=== PATIENT | male | born 1970 | race Caucasian/White ===

== ENCOUNTER 2020-01-27 17:11 | Emergency (ER) | payer SELFPAY ==
[2020-01-27 17:15] VITALS: BP 144/104; PULSE 93; TEMP 36.8; O2SAT 100
--- NOTE | 2020-01-27 17:15 | DI.RAD_ITS ---
EXAM: XR FINGER RT MIDDLE CLINICAL HISTORY: deformity with open wound TECHNIQUE: COMPARISON: No exams were available for comparison FINDINGS: Three views obtained. There is dorsal dislocation of the middle phalanx of middle finger from the pr oximal phalanx. There is no associated fracture. IMPRESSION: RADIATION DOSE DELIVERED: Total DLP
--- NOTE | 2020-01-27 17:52 | DI.VRAD_ITS ---
PROCEDURE INFORMATION: Exam: XR Right Finger(s) Exam date and time: 01/27/2020 5:41 PM Age: 50 years old Clinical indication: Pain; Finger(s); Right; Patient HX: Deformity with open wound, RT 3rd finger TECHNIQUE: Imaging protocol: XR Right fingers. Views: Minimum 2 views. COMPARISON: No relevant prior studies available. FINDINGS: Bones/joints: Complete dorsal dislocation of the proximal right 3rd interphalangeal joint. No fracture. There is no medial or lateral displacement. Soft tissues: Normal. IMPRESSION: Complete dorsal proximal right 3rd interphalangeal joint dislocation without fracture or other displacement. Dictated and Authenticated by: Raleigh Amos MD. Ordering:TERESITA Hicks MD
--- NOTE | 2020-01-27 17:52 | W.ED.GENAD ---
Discharge Plan Disposition Patient Disposition: HOME Condition: Good Discharge Details Chief Complaint: Orthopedic Clinical Impression: Open dislocation Primary Care Provider: None,None ED Provider: Fabiola Mosquera Home Meds and New Rx's Prescriptions: New cephalexin [Keflex] 500 mg capsule 500 mg PO BID Qty: 10 RF: 0 Discharge Instructions Instructions: Laceration (ED), Finger Dislocation (ED) Additional Instructions: Keep wound clean, dry, covered. Please take antibiotics to prevent infection as prescribed. Please take the entire course. Keep the current dressing on until tomorrow, after that time please remove, cover the Band-Aid and apply Foam and metal splint that you are provided. You will need follow-up with orthopedics, please call tomorrow to schedule follow-up appointment. You may return in 1 week for suture removal. Please continue with splint until evaluated by orthopedics. If you develop fever/chills, increased pain, redness, discharge or the new/worsening symptom please seek care urgently once again. Referrals: Adrian Ellison MD [ [facility] STAFF PHYSICIAN] - Discharge Data Discharge Date/Time-TO BE ENTERED AT DEPARTURE: 01/27/20 19:10 Medical Decision Making Patient is a pleasant 50 year old LHD male presenting today with c/c of deformity, laceration and pain to right middle finger. Tripped when walking in flowers and fell on outstretched right hand. He denies other injuries from the incident. Patient is not up-to-date on tetanus, will update this today. Patinet has notable deformity, unclear if htis is dislocation or fracture at the PIP joint. Sensation is intact. He has a 1cm laceration exposing tendon. Capillary refill intact. FINDINGS: Bones/joints: Complete dorsal dislocation of the proximal right 3rd interphalangeal joint. No fracture. There is no medial or lateral displacement. Soft tissues: Normal. IMPRESSION: Complete dorsal proximal right 3rd interphalangeal joint dislocation without fracture or other displacement. Discussed findings with patient. We discussed risks benefits well as procedural steps associated with reduction and closure. He was understanding wished to proceed. Please see procedure note. This was completed using standard sterile technique. Digital block was performed prior to reduction using 1% lidocaine plain. Reduction was quite easy. The wound was then copiously irrigated and cleansed with chlorhexidine and sterile saline. Explored to base in bloodless field no foreign body or debris noted. Tendon does seem to be intact. Patient is able to flex against resistance at the PIP and DIP joint. I did discuss the case with Dr. Ellison. Initially, was not going to close the wound but with addition of range of motion, the wound does seem to open quite a bit I am concerned for potential contamination. #2 simple interrupted stitches were placed. Postreduction films were obtained FINDINGS: Bones/joints: Anatomic alignment is now seen at the PIP joint of the middle (3rd) finger. No displaced fracture. Soft tissues: Soft tissue swelling is seen. IMPRESSION: Anatomic alignment within the PIP joint of the middle (3rd) finger. No fracture. Patient will be placed on Keflex for open dislocation. Patient placed in a foam and metal splint for immobilization. Encouraged follow-up with orthopedics, referral has been sent he will call tomorrow to schedule follow-up appointment. He was given strict return precautions, in particular signs of infection. He will continue with the immobilization to evaluate by orthopedics. All his questions and concerns were addressed and he is in agreement this plan. HPI General Mode of arrival: ambulatory. Date/Time Provider Initiated Documentation: 01/27/20 17:20. Limitations to Documentation: no limitations. Information obtained by: patient and RN notes reviewed. History of Present Illness 50 year old M presents to the emergency department with the chief complaint of right middle finger injuury, described as mild, with intensity rated at 1. Quality is described as aching, and is localized to the right and upper extremity. Patient reports no radiation. Patient started experiencing this minute(s) and it has been constant. Immobilization improves symptom(s), Movement worsens symptoms . Patient notes no other symptoms.. Patient did receive the following treatments prior to arrival, none Related Data Home Medications Medication Instructions Recorded Confirmed cephalexin [Keflex] 500 mg PO BID #10 cap 01/27/20 Previous Rx's Medication Instructions Recorded cephalexin [Keflex] 500 mg PO BID #10 cap 01/27/20 Allergies Allergy/AdvReac Type Severity Reaction Status Date / Time fire ant Allergy Severe anaphylaxis Verified 01/27/20 17:19 General Stated Complaint: Orthopedic ANGELO: 3 Review of Systems Constitutional Constitutional: Reports as per HPI, Denies chills, Denies fever(s), Denies headache(s) and Denies weakness ENT Ears, Nose, Mouth, and Throat: Denies headache(s) Cardiovascular Cardiovascular: Reports as per HPI Respiratory Respiratory: Reports as per HPI and Denies cough Musculoskeletal Musculoskeletal: Reports as per HPI and Denies tingling Integumentary/Breasts Skin/Breast: Reports as per HPI, Denies rash and Reports wounds Neurologic Neurologic: Reports as per HPI, Denies headache(s), Denies tingling, Denies paresthesias and Denies weakness [facility] Social History Smoking/Tobacco Use Status: Current every day Tobacco Type: cigarettes Alcohol Intake: current Alcohol Intake frequency: a few times a month Drug use: Never Substance use type: does not use Adopted: No Caregiver/Support person: No Foster care: No Household members: spouse Housing: house Do you need help understanding health information?: Rarely current occupation: Construction, [employer] Sexually active: Yes Do you think of yourself as: straight/heterosexual Current gender identity: male Do you feel safe at home: Yes Do you feel safe in your relationship?: Yes Exam Const General: cooperative, healthy appearing, comfortable, no acute distress, well developed and well groomed Nutritional Appearance: average body habitus and well nourished Orientation: alert and awake Resp Effort & Inspection: normal respiratory effort, able to speak in complete sentences and no respiratory distress Cardio Rate: regular rate Rhythm: regular rhythm Skin Trauma: laceration (as below) Neuro General: patient alert and patient awake Cognition: normal cognition Speech: speech normal Gait: normal gait Motor: muscle tone normal throughout Sensory Exam: no sensory deficits noted Extrem Right upper extremity: normal capillary refill, wrist Details: normal to inspection and hand Details: abnormal to inspection Details: a deformity Location: of the 3rd digit (deformity to PIP joint, unabl eto ROM, laceration along flexor surfact) and neurosensory exam normal; abnormal to inspection and ROM limited Hand/finger images: 1. irregularly shaped laceration. Tendon is visible over what appears to be a dislocated joint. Sensation is intact distally. No active bleeding. Unable to range finger. Exam of the hand otherwise normal. Psych Appearance: grossly normal and well kempt Mental Status: mental status grossly normal Speech and Movement: speech and movement normal Course Vital Signs Vital signs: Vital Signs Temperature 36.8 C 01/27/20 17:15 Pulse 93 H 01/27/20 17:15 Blood Pressure 144/104 H 01/27/20 17:15 Pulse Oximetry 100 01/27/20 17:15 Temperature 36.8 C 01/27/20 17:15 Temperature Source Temporal Artery Scan 01/27/20 17:15 Pulse 93 H 01/27/20 17:15 Respiratory Effort Non-Labored 01/27/20 17:17 Blood Pressure 144/104 H 01/27/20 17:15 Blood Pressure Position Sitting 01/27/20 17:15 Pulse Oximetry 100 01/27/20 17:15 Oxygen Delivery Method Room Air 01/27/20 17:15 Oxygen Flow Rate 0 01/27/20 17:15 Pain Level 1 01/27/20 17:15 Procedures Laceration Laceration 1: Site: upper extremity Side (If applicable): right Size (cm): 1.5 Description: irregular Depth: simple, single layer Local Anesthetic: Lidocaine 1% Amount of anesthesia used (mL): 5 Pre-repair: wound explored, irrigated extensively and deep structures intact Skin layer closed with: nylon Size (cm): 5-0 Number of sutures: 2 Orthopedic Joint Reduction right index PIP joint: Time Out Performed: Yes Side: right Joint Reduction Location: finger Local Anesthesia: Lidocaine 1% Amount of anesthesic used (mL): 5 Technique used: direct manipulation Post-reduction vascular: intact and no change Post Reduction X-Ray Obtained: Yes Post Reduction X-Ray Results: reduced Splint Applied: Yes Patient Tolerated Procedure: well and no complications
--- NOTE | 2020-01-27 18:30 | DI.RAD_ITS ---
EXAM: XR FINGER RT MIDDLE CLINICAL HISTORY: post reduction TECHNIQUE: COMPARISON: CR,XR XR FINGER RT MIDDLE from 01/27/2020 FINDINGS: Three views were obtained and show reduction of the previously noted PIP dislocation. No fracture id entified. IMPRESSION: RADIATION DOSE DELIVERED: Total DLP
--- NOTE | 2020-01-27 19:11 | DI.VRAD_ITS ---
PROCEDURE INFORMATION: Exam: XR Right Finger(s) Exam date and time: 01/27/2020 6:52 PM Age: 50 years old Clinical indication: Screening exam; Post-reduction; Patient HX: Post reduction TECHNIQUE: Imaging protocol: XR Right fingers. Views: Minimum 2 views. COMPARISON: CR XR FINGER RT MIDDLE 01/27/2020 5:42 PM FINDINGS: Bones/joints: Anatomic alignment is now seen at the PIP joint of the middle (3rd) finger. No displaced fracture. Soft tissues: Soft tissue swelling is seen. IMPRESSION: Anatomic alignment within the PIP joint of the middle (3rd) finger. No fracture. Dictated and Authenticated by: Christine Murry MD. Ordering:TERESITA Hicks MD
== END 2020-01-27 19:10 | disposition home or self-care (01) ==
PROVIDERS: Emergency Provider Physician Assistant
DX: S63.282A Dislocation of proximal interphalangeal joint of right middle finger, initial encounter (principal); S61.212A Laceration without foreign body of right middle finger without damage to nail, initial encounter; W18.09XA Striking against other object with subsequent fall, initial encounter
CPT/HCPCS: 12001; 26770; 90471; 73140

== ENCOUNTER 2020-11-08 09:32 | Emergency (ER) | payer SELFPAY ==
[2020-11-08 09:36] VITALS: BP 166/102; PULSE 89; RESP 16; TEMP 36.4; O2SAT 97
--- NOTE | 2020-11-08 09:41 | W.ED.GENAD ---
Discharge Plan Disposition Patient Disposition: HOME Condition: Stable Discharge Details Clinical Impression: BP (high blood pressure), Rash Primary Care Provider: None,None ED Provider: Fabiola Mosquera Home Meds and New Rx's Prescriptions: New prednisone 10 mg tablet 10 mg PO DAILY Qty: 35 RF: 0 Discharge Instructions Instructions: Acute Rash (ED), Hypertension (ED) Additional Instructions: Your rash is most consistent with poison dirk. However, I would like for you to follow-up with the primary care notes different areas are concerning for different types of rashes. Plan to treat for poison dirk as this is most likely at this time. Prednisone as prescribed. This has been sent to your pharmacy of choice. This will include a taper so please follow dosing instructions closely. May try topical options such as Ivarest to help with itching. Staff use oral antihistamine such as Benadryl or Claritin. Your blood pressure was elevated here today. Please continue to monitor this intermittently at home when relaxed. She did not have a blood pressure cuff, you may also check this at local drugstore's. Please write this down and discuss with primary care. I have asked her care management team to help establish local primary care with close follow-up. If you develop fever/chills, spreading of the rash or other new/worsening symptoms please seek care urgently once again. Discharge Data Discharge Date/Time-TO BE ENTERED AT DEPARTURE: 11/08/20 10:16 Medical Decision Making Patient is a pleasant 50-year-old male presenting for chief complaint of rash. States over the past few days, he has been noticing a spreading rash. States that it started on the ankle and has been quite itchy. Is now noticing it on the left knee, ulnar aspect of the right hand and under his chin. Does not have any under his clothing. No one in his home has similar symptoms. 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 He had initially been concerned that it went up bedbugs. Patient states he also walks in the flowers a lot with his dog. Dog is not believed to have fleas. On exam, patient appears nontoxic. He is noted to be hypertensive. He is anxious. He has a rash that is maximal over the left lower extremity. Rash has different appearance. Primarily it appears to be clumped vesicles that have been excoriated. He does have 1 small 1 between his middle and ring finger on the left hand but no tracking consistent with scabies. This is most consistent with poison dirk although it does seem to be scattered and small areas fairly diffusely over his lower extremities and arms. Plan to treat with steroids. Patient was noted to be hypertensive. He is asymptomatic with this and I have asked that he follow-up with primary care. Patient does not have a local primary care, will ask our youth care specialist to arrange for close follow-up. I would like to have the patient reevaluated in the next 1 to 2 weeks. Return precautions were discussed. All his questions and concerns were addressed and he is in agreement HPI General Mode of arrival: ambulatory. Date/Time Provider Initiated Documentation: 11/08/20 09:41. Limitations to Documentation: no limitations. Information obtained by: patient and RN notes reviewed. History of Present Illness 50 year old M presents to the emergency department with the chief complaint of rash, described as moderate (no pain, rash itches), Quality is described as other (itching), and is localized to the left, right, upper extremity and lower extremity. Patient reports no radiation. Patient started experiencing this day(s) and it has been constant. No relieving factors improve symptom(s), No exacerbating factors reported . Patient notes no other symptoms.; denies cough, fever/chills, nausea/vomiting and shortness of breath. Patient did receive the following treatments prior to arrival, none Related Data Home Medications Medication Instructions Recorded Confirmed prednisone 10 mg PO DAILY #35 tab 11/08/20 Previous Rx's Medication Instructions Recorded prednisone 10 mg PO DAILY #35 tab 11/08/20 Allergies Allergy/AdvReac Type Severity Reaction Status Date / Time fire ant Allergy Severe anaphylaxis Verified 11/08/20 09:39 General Stated Complaint: RashLesion ANGELO: 4 Review of Systems Constitutional Constitutional: Reports as per HPI, Denies chills and Denies fever(s) Musculoskeletal Musculoskeletal: Reports as per HPI Integumentary/Breasts Skin/Breast: Reports as per HPI Neurologic Neurologic: Reports as per HPI, Denies sensory deficit and Denies paresthesias [facility] Social History Smoking/Tobacco Use Status: Current every day Tobacco Type: cigarettes Smoking risk assessment performed?: Yes Alcohol Intake: current Alcohol Intake frequency: a few times a month Drug use: Never Substance use type: does not use Adopted: No Caregiver/Support person: No Foster care: No Household members: spouse Housing: house Do you need help understanding health information?: Rarely current occupation: Construction, [employer] Sexually active: Yes Do you think of yourself as: straight/heterosexual Current gender identity: male Do you feel safe at home: Yes Do you feel safe in your relationship?: Yes Exam Const General: cooperative, healthy appearing, comfortable, no acute distress and well developed Nutritional Appearance: average body habitus and well nourished Orientation: alert and awake Resp Effort & Inspection: normal respiratory effort, able to speak in complete sentences and no respiratory distress Cardio Rate: regular rate Rhythm: regular rhythm Skin Rashes: rashes noted (BLE, worse on left knee/ankle with raised, excoriated areas ) Neuro General: patient alert and patient awake Cognition: normal cognition Speech: speech normal Gait: normal gait Sensory Exam: no sensory deficits noted Psych Appearance: grossly normal and well kempt Mental Status: mental status grossly normal Speech and Movement: speech and movement normal Course Vital Signs Vital signs: Vital Signs Temperature 36.4 C L 11/08/20 09:36 Pulse 89 11/08/20 09:36 Respiratory Rate 16 11/08/20 09:36 Blood Pressure 166/102 H 11/08/20 09:36 Pulse Oximetry 97 11/08/20 09:36 Temperature 36.4 C L 11/08/20 09:36 Temperature Source Skin 11/08/20 09:36 Pulse 89 11/08/20 09:36 Respiratory Rate 16 11/08/20 09:36 Respiratory Effort Non-Labored 11/08/20 09:40 Blood Pressure 166/102 H 11/08/20 09:36 Blood Pressure Position Sitting 11/08/20 09:36 Pulse Oximetry 97 11/08/20 09:36 Oxygen Delivery Method Room Air 11/08/20 09:36 Oxygen Flow Rate 0 11/08/20 09:36 Pain Level 0 11/08/20 09:36
[2020-11-08 10:03] VITALS: BP 173/91
--- NOTE | 2020-11-08 10:06 | NUR.NOTE ---
Nursing Note: Referral given to Care Management for follow up in 1 - 2 weeks for hypertension, rash, establish care. Ruth Ragsdale
== END 2020-11-08 10:16 | disposition home or self-care (01) ==
PROVIDERS: Emergency Provider Physician Assistant
DX: R23.8 Other skin changes (principal); R03.0 Elevated blood-pressure reading, without diagnosis of hypertension; L23.7 Allergic contact dermatitis due to plants, except food
CPT/HCPCS: 99283